=== PATIENT | male | born 1965 | race Asian ===

== ENCOUNTER → 2020-07-17 14:12 | Outpatient (CLI) | payer OTHER, SELFPAY ==
[2020-07-17] MEDS: COVID-19 VACC, Ad26(JANSSEN)/PF 0.5 ML IM (14:37)
== END ==
PROVIDERS: Visit Provider Internal Medicine
DX: Z23 Encounter for immunization (principal)
CPT/HCPCS: 0031A; 91303

== ENCOUNTER 2022-05-08 01:00 | Emergency (ER) | payer SELFPAY ==
[2022-05-08] VITALS (47 sets, daily range): BP systolic 111–206; BP diastolic 68–129; PULSE 62–95; RESP 12–32; TEMP 36.8; O2SAT 92–98
--- NOTE | 2022-05-08 01:01 | DI.CT.S_ITS ---
PROCEDURE: CT STROKE INDICATIONS: code stroke TECHNIQUE: Noncontrast 4.5 mm thick angled axial sections acquired from the foramen magnum to the vertex, with coronal reformats. For radiation dose reduction, the following was used: automated exposure control, adjustment of mA and/or kV according to patient size. COMPARISON: None. FINDINGS: Image quality: Excellent. CSF spaces: Basal cisterns are patent. No extra-axial fluid collections. Ventricles are normal in size and shape. Brain: No midline shift. No intracranial masses or hemorrhage. Monge-white matter interface is normal. Skull and face: There is a soft tissue hematoma seen overlying the occiput, as on series 2, image 12. No associated fracture can be seen. Calvarium and visualized facial bones are intact, without suspicious lesions. Sinuses: Moderate mucosal thickening can be seen within the maxillary sinuses. There is [id number]-jl-[id number] mucosal thickening within the ethmoid air cells. No abnormal fluid is seen within the mastoid air cells. IMPRESSION: No acute intracranial hemorrhage is seen. No acute intracranial process is seen. Occipital scalp hematoma noted, without an associated fracture. Note: Case discussed by telephone with Dr. Mueller at 12:20 a.m. [place] time on May 08, 2022. This study fulfills neurological imaging criteria for inclusion or exclusion of acute stroke therapies based on available published neurological imaging guidelines. Dictated by: Beck Nelson M.D. on 05/08/2022 at 0:18 Approved by: Beck Nelson M.D. on 05/08/2022 at 0:21
--- NOTE | 2022-05-08 01:01 | DI.CT.S_ITS ---
PROCEDURE: CT ANGIO HEAD AND NECK INDICATIONS: Code stroke TECHNIQUE: Noncontrast images were performed earlier in the day and not repeated. After the administration of intravenous contrast, 1 mm thick sections acquired from the aortic arch through the [place]. Post-contrast 4.5 mm thick sections then re-acquired from the foramen magnum to the vertex. 3-dimensional fcbortt-dmsbkposg-ryhuvabsyr (MIP) and/or volume rendering reformats were acquired of the central intracranial vasculature and neck separately. For radiation dose reduction, the following was used: automated exposure control, adjustment of mA and/or kV according to patient size. COMPARISON: [facility], CT, CT STROKE, 05/08/2022, 1:05. FINDINGS: Image quality: Excellent. BRAIN: CSF spaces: Ventricles are normal in size and shape. Basal cisterns are patent. No extra-axial fluid collections. Brain: No midline shift. No intracranial bleeds or masses. Monge-white matter interface appears intact. Skull and face: Posterior occipital scalp hematoma is again seen, without associated calvarial fracture. Calvarium and facial bones appear intact, without suspicious lesions. Orbits appear normal. Sinuses: Moderate mucosal thickening is seen within the maxillary sinuses and the anterior ethmoid air cells. No abnormal fluid is seen within the mastoid air cells. HEAD CT ANGIOGRAPHY: Anterior circulation: Intracranial internal carotid arteries are normal in size and flow. There is a diminutive left A1 segment, with a corresponding robust right A1 segment. This is considered to be a normal developmental variant of the [place] of [place], of typically no clinical consequence. The flow within the paired anterior cerebral arteries is otherwise normal and symmetric. The flow within the middle cerebral arteries is normal and symmetric. The anterior communicating artery is seen. No aneurysms are seen. Posterior circulation: Visualized portions of the vertebral arteries demonstrate normal caliber, and join to form a normal appearing basilar artery. There is a prominent left posterior communicating artery seen, with an accompanying diminutive left P1 segment. This is attributed to a type origin of the left posterior cerebral artery, which is considered to be a normal developmental variant of typically no clinical consequence. Flow within the posterior cerebral arteries is normal and symmetric. No aneurysms are seen. NECK CT ANGIOGRAPHY: Carotid system: The great vessels demonstrate a conventional anatomy as they arise from the aortic arch. The origins of the common carotid arteries appear patent. The common carotid arteries demonstrate normal caliber and courses. The bifurcation regions are both widely patent. The internal carotid arteries demonstrate normal calibers and courses. Posterior circulation: The origins of the vertebral arteries both appear widely patent. The more superior extracranial portions of both vertebral arteries also demonstrate normal courses and calibers. The left vertebral artery is dominant to the right. Soft tissues: Visualized neck soft tissues demonstrate no suspicious abnormalities. Bones: No suspicious bony lesions. Visualized cervical spine appears normally aligned. Cervical spine degenerative changes are seen, which are overall worst inferiorly. IMPRESSION: No significant intracranial arterial abnormality is seen. Within the arteries of the neck, no hemodynamically significant stenosis can be seen. Additional findings: [id number] developmental anomalies. Paranasal sinus disease Dominant left vertebral artery Any quantitative measurements of stenosis were performed using NASCET criteria. Dictated by: Beck Nelson M.D. on 05/08/2022 at 0:31 Approved by: Beck Nelson M.D. on 05/08/2022 at 0:35
[2022-05-08 01:19] LABS: Add Manual Diff / Slide Review NO; Basophils Absolute Auto 100 /uL (0-100); Eosinophils Absolute Auto 200 /uL (0-450); Eosinophils Percent Auto 2.1 % (2-4); Hematocrit 48.1 % (41-53); Hemoglobin 16.6 g/dL (13.5-17.5); Lymphocytes Absolute Auto 2900 /uL (1100-4500); Lymphocytes Percent Auto 36.3 % (25-40); Mean Corpuscular HGB Conc 34.5 % (30-36); Mean Corpuscular Hemoglobin 30.7 PG (26-34); Monocytes Absolute Auto 800 /uL (0-900); Monocytes Percent Auto 10.5 % (3-14); Neutrophils Absolute Auto 4000 /uL (1500-7000); Neutrophils Percent Auto 50.1 % (50-75); Platelet Count 278 X10^3/uL (150-400); Red Blood Cell Count 5.41 X10^6/uL (4.5-5.9); White Blood Cell Count 7.9 X10^3/uL (4.5-11.0)
--- NOTE | 2022-05-08 01:20 | ED_ITS ---
HPI - General Adult General Chief complaint: Neuro Symptoms/Deficit Stated complaint: Code stroke. last known 0008 Time Seen by Provider: 05/08/22 01:00 Source: patient and EMS Mode of arrival: EMS Limitations: no limitations History of Present Illness HPI narrative: Patient is a 56-year-old male. History of high blood pressure. Not on blood thinners. No prior history of stroke. 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 He was outside doing some work when he stated that he felt like he could not control his left side. He did fall. He did hit his head. There was no loss of consciousness. His last known normal was at proximally 0010 hours. This is when he contacted family members stating that he did not feel very well. At some point around this time he did have a ?fullness? in the right side of his head. EMS was called. Blood sugar prior to arrival was 127. He has left-sided deficits both his upper and lower extremities but more specifically in his left lower extremity. No facial droop. Code stroke was called. Patient was taken directly to the CT scanner. Patient denies vision changes, shortness of breath, chest pain, abdominal pain, nausea vomiting. He did soil himself and also urinated himself. He is never had a seizure in the past. He reports no pain in his extremities. Related Data Allergies Allergy/AdvReac Type Severity Reaction Status Date / Time No Known Drug Allergies Allergy Verified 05/08/22 01:22 Review of Systems Review of Systems ROS Unobtainable: All systems reviewed & are unremarkable except as noted in HPI and below Patient History Medical History Hypertension Social History Smoking Status: Current every day smoker Exam Initial Vital Signs Initial Vital Signs: Vital Signs Pulse Rate 65 05/08/22 01:11 Pulse Oximetry 98 05/08/22 01:11 Const General: cooperative, comfortable, No in distress, No combative and No ill appearing HENMT Head: contusion (Occipital region) and hematoma (Occipital region) Eyes Pupils: PERRL Chest Chest: No crepitus and No tenderness Resp Effort & Inspection: normal respiratory effort Auscultation: clear to auscultation bilaterally Cardio Rate: regular rate Rhythm: regular rhythm GI Inspection: normal to inspection and non-distended Palpation: soft and No tender Back/Spine/Pelvis Cervical Spine: No cervical spinal tenderness Skin Other: Contusion occipital region of scalp without abrasion Neuro Cognition: normal cognition Speech: speech normal Other: See NIH scale Extrem General: normal to inspection and capillary refill normal Other: No gross deformities Psych Appearance: grossly normal and well kempt Scores GCS Nhan coma scale eye opening: Spontaneous [place] coma scale verbal response: Orientated Nhan coma scale motor response: Obey commands [place] coma scale total score: 15 NIH Stroke Scale Level of Conciousness: Alert, keenly responsive Ask month/age: Answers both questions correctly. Open/close eyes, close hand: Performs both tasks correctly Best gaze horizontal: Normal Visual lenz: No visual loss Facial palsy: Normal symetrical movement Left arm drift: No drift for full 10 sec Right arm drift: No drift for full 10 sec Left leg drift: No movement Right leg drift: No drift for full 5 sec Limb ataxia: Present in two limbs Sensory on face/arms/legs: Mild to moderate sensory loss, can tell touch Best language: No aphasia, normal Dysarthria: Normal Extinction or inattention: No abnormality Total NIH Stroke scale score: 7 Course Orders Ordered: ED Orders 05/08/22 00:40 Complete Blood Count AUTO DIFF Stat Comprehensive Metabolic Panel Stat Ethanol (ETOH) Stat Lipase Stat Magnesium Stat Partial Thromboplastin Time Stat Prothrombin Time INR Stat 05/08/22 01:[address] angio head and neck Stat 05/08/22 01:02 EKG-12 Lead Stat 05/08/22 02:11 COVID19 -Nasal RAPID/Pre-Proc Stat Sodium Chloride (Normal Saline 0.9%) 1,000 mls @ 125 mls/hr IV CONT ESTHER Last Admin: 05/08/22 02:03 Dose: 125 mls/hr Documented By: NATALY Nicardipine HCl 25 mg/ Sodium (Chloride) 250 mls @ 50 mls/hr IV TITRATE ESTHER; Protocol Last Titration: 05/08/22 07:14 Dose: 1 mg/hr, 10 mls/hr Documented By: Titration: 05/08/22 02:55 Dose: 3 mg/hr, 30 mls/hr Documented By: Titration: 05/08/22 02:31 Dose: 5 mg/hr, 50 mls/hr Documented By: Titration: 05/08/22 02:18 Dose: 7.5 mg/hr, 75 mls/hr Documented By: Titration: 05/08/22 02:08 Dose: 10 mg/hr, 100 mls/hr Documented By: Admin: 05/08/22 01:43 Dose: 5 mg/hr, 50 mls/hr Documented By: NATALY Discontinued Medications Alteplase, Recombinant (Activase) 8.5 mg in 8.5 mls @ 510 mls/hr 0.09 mg/kg (8.5 mg) IV NOW ONE Stop: 05/08/22 01:23 Last Infusion: 05/08/22 02:02 Dose: 0 mls/hr Documented By: Admin: 05/08/22 02:01 Dose: 510 mls/hr Documented By: NATALY Alteplase, Recombinant (Activase) 76.8 mg in 76.8 mls @ 76.8 mls/hr 0.81 mg/kg (76.8 mg) IV NOW ONE Stop: 05/08/22 03:57 Last Admin: 05/08/22 03:18 Dose: Not Given Documented By: NATALY Labetalol HCl (Labetalol 20 Mg/4 Ml Syringe) 10 mg IV NOW ONE; Protocol Stop: 05/08/22 01:22 Last Admin: 05/08/22 01:24 Dose: 10 mg Documented By: NATALY Vital Signs Vital signs: Vital Signs - 8 hr 05/08/22 01:15 05/08/22 01:24 05/08/22 01:11 Temperature 98.3 F Pulse Rate 64 64 65 Respiratory Rate 18 Blood Pressure 199/120 H 193/118 H Pulse Oximetry 98 98 Oxygen Delivery Method Room Air 05/08/22 01:13 05/08/22 01:13 05/08/22 01:19 Temperature Pulse Rate 67 65 Respiratory Rate Blood Pressure 199/120 H Pulse Oximetry 98 98 Oxygen Delivery Method 05/08/22 01:19 05/08/22 01:20 05/08/22 01:20 Temperature Pulse Rate 63 Respiratory Rate 14 Blood Pressure 198/119 H 193/118 H Pulse Oximetry 98 Oxygen Delivery Method 05/08/22 01:30 05/08/22 01:30 05/08/22 01:34 Temperature Pulse Rate 66 Respiratory Rate 17 Blood Pressure 196/121 H 198/129 H Pulse Oximetry 97 Oxygen Delivery Method 05/08/22 01:34 05/08/22 01:35 05/08/22 01:35 Temperature Pulse Rate 68 65 Respiratory Rate 18 15 Blood Pressure 205/121 H Pulse Oximetry 97 98 Oxygen Delivery Method 05/08/22 01:40 05/08/22 01:40 05/08/22 01:45 Temperature Pulse Rate 62 68 Respiratory Rate 17 17 Blood Pressure 199/119 H Pulse Oximetry 98 98 Oxygen Delivery Method 05/08/22 01:45 05/08/22 01:50 05/08/22 01:50 Temperature Pulse Rate 67 Respiratory Rate 15 Blood Pressure 206/126 H 177/111 H Pulse Oximetry 98 Oxygen Delivery Method 05/08/22 01:55 05/08/22 01:55 05/08/22 02:00 Temperature Pulse Rate 67 Respiratory Rate 16 Blood Pressure 177/107 H 178/110 H Pulse Oximetry 97 Oxygen Delivery Method 05/08/22 02:00 05/08/22 02:05 05/08/22 02:05 Temperature Pulse Rate 71 76 Respiratory Rate 15 22 Blood Pressure 196/123 H Pulse Oximetry 97 98 Oxygen Delivery Method 05/08/22 02:10 05/08/22 02:10 05/08/22 02:15 Temperature Pulse Rate 80 Respiratory Rate 19 Blood Pressure 167/98 H 157/95 H Pulse Oximetry 97 Oxygen Delivery Method 05/08/22 02:15 05/08/22 02:20 05/08/22 02:20 Temperature Pulse Rate 76 76 Respiratory Rate 16 15 Blood Pressure 144/81 H Pulse Oximetry 97 96 Oxygen Delivery Method 05/08/22 02:25 05/08/22 02:25 05/08/22 02:30 Temperature Pulse Rate 76 Respiratory Rate 13 Blood Pressure 141/79 H 137/83 Pulse Oximetry 96 Oxygen Delivery Method 05/08/22 02:30 05/08/22 02:35 05/08/22 02:35 Temperature Pulse Rate 80 77 Respiratory Rate 19 14 Blood Pressure 144/91 H Pulse Oximetry 96 98 Oxygen Delivery Method Room Air 05/08/22 02:40 05/08/22 02:40 05/08/22 02:45 Temperature Pulse Rate 79 Respiratory Rate 19 Blood Pressure 148/91 H 147/88 H Pulse Oximetry 98 Oxygen Delivery Method 05/08/22 02:45 05/08/22 02:50 05/08/22 02:50 Temperature Pulse Rate 79 74 Respiratory Rate 20 15 Blood Pressure 141/82 H Pulse Oximetry 97 98 Oxygen Delivery Method 05/08/22 02:55 05/08/22 02:55 05/08/22 03:00 Temperature Pulse Rate 78 Respiratory Rate 17 Blood Pressure 139/84 129/81 Pulse Oximetry 97 Oxygen Delivery Method 05/08/22 03:00 05/08/22 03:05 05/08/22 03:05 Temperature Pulse Rate 77 77 Respiratory Rate 21 25 H Blood Pressure 142/84 H Pulse Oximetry 97 97 Oxygen Delivery Method 05/08/22 03:10 05/08/22 03:10 05/08/22 03:20 Temperature Pulse Rate 78 79 Respiratory Rate 16 21 Blood Pressure 147/85 H Pulse Oximetry 98 98 Oxygen Delivery Method 05/08/22 03:20 05/08/22 03:30 05/08/22 03:48 Temperature Pulse Rate 82 81 Respiratory Rate Blood Pressure 135/82 Pulse Oximetry 98 96 Oxygen Delivery Method 05/08/22 03:48 05/08/22 04:00 05/08/22 04:00 Temperature Pulse Rate 80 Respiratory Rate Blood Pressure 131/81 137/80 Pulse Oximetry 94 Oxygen Delivery Method 05/08/22 04:15 05/08/22 04:15 05/08/22 04:30 Temperature Pulse Rate 76 Respiratory Rate Blood Pressure 144/81 H 135/77 Pulse Oximetry 95 Oxygen Delivery Method 05/08/22 04:30 05/08/22 04:45 05/08/22 04:45 Temperature Pulse Rate 77 82 Respiratory Rate Blood Pressure 130/72 Pulse Oximetry 96 96 Oxygen Delivery Method 05/08/22 05:00 05/08/22 05:01 05/08/22 05:01 Temperature Pulse Rate 87 89 Respiratory Rate Blood Pressure 128/68 Pulse Oximetry 97 96 Oxygen Delivery Method 05/08/22 05:15 05/08/22 05:15 05/08/22 05:29 Temperature Pulse Rate 89 95 H Respiratory Rate Blood Pressure 148/78 H Pulse Oximetry 96 92 Oxygen Delivery Method 05/08/22 05:31 05/08/22 05:44 05/08/22 05:47 Temperature Pulse Rate 90 91 H Respiratory Rate 32 H 21 Blood Pressure 194/105 H Pulse Oximetry 97 96 Oxygen Delivery Method 05/08/22 05:47 05/08/22 06:00 05/08/22 06:01 Temperature Pulse Rate 86 87 Respiratory Rate 24 26 H Blood Pressure 160/70 H Pulse Oximetry 98 98 Oxygen Delivery Method 05/08/22 06:01 05/08/22 06:15 05/08/22 06:15 Temperature Pulse Rate 86 Respiratory Rate 17 Blood Pressure 116/78 123/86 Pulse Oximetry Oxygen Delivery Method 05/08/22 06:30 05/08/22 06:30 05/08/22 06:45 Temperature Pulse Rate 76 76 Respiratory Rate 12 12 Blood Pressure 119/78 Pulse Oximetry 96 94 Oxygen Delivery Method 05/08/22 06:45 Temperature Pulse Rate Respiratory Rate Blood Pressure 111/74 Pulse Oximetry Oxygen Delivery Method Medical Decision Making Lab Data Lab results reviewed: Yes I reviewed the patient's lab results. Result diagrams: 05/08/22 00:40 05/08/22 00:40 Labs: Lab Results 05/08/22 05/08/22 05/08/22 Range/Units 00:40 00:40 00:40 WBC 7.9 (4.5-11.0) X10^3/uL RBC 5.41 (4.5-5.9) X10^6/uL Hgb 16.6 (13.5-17.5) g/dL Hct 48.1 (41-53) % MCV 89.0 (80-100) fL MCH 30.7 (26-34) PG MCHC 34.5 (30-36) % RDW 13.0 (11.6-14.8) % Plt Count 278 (150-400) X10^3/uL Neut % (Auto) 50.1 (50-75) % Lymph % (Auto) 36.3 (25-40) % [place] % (Auto) 10.5 (3-14) % Eos % (Auto) 2.1 (2-4) % Baso % (Auto) 1.0 (0-2) % Neut # (Auto) 4000 (9701-5080) /uL Lymph # (Auto) 2900 (4047-5031) /uL [place] # (Auto) 800 (0-900) /uL Eos # (Auto) 200 (0-450) /uL Baso # (Auto) 100 (0-100) /uL PT 11.0 (10.1-12.7) SECONDS INR 1.0 (0.9-1.3) APTT 35 (26-36) SECONDS Sodium 139 (137-145) mmol/L Potassium 4.0 (3.4-5.1) mmol/L Chloride 100 (98-107) mmol/L Carbon Dioxide 27 (22-32) mmol/L BUN 17 (9-20) mg/dL Creatinine 0.99 (0.66-1.25) mg/dL Estimated GFR > 60 (>60) mL/min BUN/Creatinine Ratio 17.2 (6-22) Glucose 105 H (70-100) mg/dL Calcium 9.4 (8.4-10.2) mg/dL Magnesium 2.1 (1.6-2.3) mg/dL Total Bilirubin 0.5 (0.2-1.3) mg/dL AST 31 (17-59) IU/L ALT 44 (<50) IU/L Alkaline Phosphatase 82 (38-126) U/L Total Protein 7.7 (6.3-8.2) g/dL Albumin 4.5 (3.5-5.0) g/dL Globulin 3.2 (1.7-4.1) g/dL Albumin/Globulin Ratio 1.4 (1.0-2.8) Lipase 106 (23-300) U/L Ethyl Alcohol < 10 ( - 10) mg/dL SARS-CoV-2 (PCR) (Negative) 05/08/22 Range/Units 02:11 WBC (4.5-11.0) X10^3/uL RBC (4.5-5.9) X10^6/uL Hgb (13.5-17.5) g/dL Hct (41-53) % MCV (80-100) fL MCH (26-34) PG MCHC (30-36) % RDW (11.6-14.8) % Plt Count (150-400) X10^3/uL Neut % (Auto) (50-75) % Lymph % (Auto) (25-40) % [place] % (Auto) (3-14) % Eos % (Auto) (2-4) % Baso % (Auto) (0-2) % Neut # (Auto) (7818-4385) /uL Lymph # (Auto) (4910-8556) /uL [place] # (Auto) (0-900) /uL Eos # (Auto) (0-450) /uL Baso # (Auto) (0-100) /uL PT (10.1-12.7) SECONDS INR (0.9-1.3) APTT (26-36) SECONDS Sodium (137-145) mmol/L Potassium (3.4-5.1) mmol/L Chloride (98-107) mmol/L Carbon Dioxide (22-32) mmol/L BUN (9-20) mg/dL Creatinine (0.66-1.25) mg/dL Estimated GFR (>60) mL/min BUN/Creatinine Ratio (6-22) Glucose (70-100) mg/dL Calcium (8.4-10.2) mg/dL Magnesium (1.6-2.3) mg/dL Total Bilirubin (0.2-1.3) mg/dL AST (17-59) IU/L ALT (<50) IU/L Alkaline Phosphatase (38-126) U/L Total Protein (6.3-8.2) g/dL Albumin (3.5-5.0) g/dL Globulin (1.7-4.1) g/dL Albumin/Globulin Ratio (1.0-2.8) Lipase (23-300) U/L Ethyl Alcohol ( - 10) mg/dL SARS-CoV-2 (PCR) Negative (Negative) Imaging Data CT scan - head: Radiologist's Impression: [address] Scan ReportSigned Patient: KING DORAN#: [id number]: 1965Acct:[id number]/Sex: 56 / MDate of Service: 05/08/22Loc: EDAccession Number: [id number]? ? Procedure: CT Stroke Ordering Provider: Patrick Mueller D.O. PROCEDURE:? CT STROKE ? INDICATIONS:? code stroke ? TECHNIQUE:? Noncontrast 4.5 mm thick angled axial sections acquired from the foramen magnum to the vertex, with coronal reformats.? For radiation dose reduction, the following was used:? automated exposure control, adjustment of mA and/or kV according to patient size.? ? COMPARISON:? None. ? FINDINGS:? Image quality:? Excellent.? ? CSF spaces:? Basal cisterns are patent.? No extra-axial fluid collections.? Ventricles are normal in size and shape.? ? Brain:? No midline shift.? No intracranial masses or hemorrhage.? Monge-white matter interface is normal.? ? Skull and face:? There is a soft tissue hematoma seen overlying the occiput, as on series 2, image 12.? No associated fracture can be seen.? Calvarium and visualized facial bones are intact, without suspicious lesions.? ? Sinuses:? Moderate mucosal thickening can be seen within the maxillary sinuses.? There is hfkc-qy-kqkmpxtv mucosal thickening within the ethmoid air cells. No abnormal fluid is seen within the mastoid air cells. ? ? IMPRESSION:? No acute intracranial hemorrhage is seen.? ? No acute intracranial process is seen.? ? Occipital scalp hematoma noted, without an associated fracture. ? ? Note: Case discussed by telephone with Dr. Mueller at 12:20 a.m. [place] time on May 08, 2022.? This study fulfills neurological imaging criteria for inclusion or exclusion of acute stroke therapies based on available published neurological imaging guidelines.? ? ? Dictated by: Beck Nelson M.D. on 05/08/2022 at 0:18? ?? Approved by: Beck Nelson M.D. on 05/08/2022 at 0:21?? CTA - brain/neck: Radiologist's Impression: [place] [address] CT Scan Report Signed Patient: MUKUND DORAN MR#: [id number] : 1965 Acct:[id number] Age/Sex: 56 / M Date of Service: 05/08/22 Loc: ED Accession Number: [id number] ?? Procedure: CT angio head and neck Ordering Provider: Patrick Mueller D.O. PROCEDURE:? CT ANGIO HEAD AND NECK ? INDICATIONS:? Code stroke ? TECHNIQUE:? Noncontrast images were performed earlier in the day and not repeated.? ? After the administration of intravenous contrast, 1 mm thick sections acquired from the aortic arch through the [place].? Post-contrast 4.5 mm thick sections then re- acquired from the foramen magnum to the vertex.? 3-dimensional hmmfnbg-mqdaohyeq-deunwurnix (MIP) and/or volume rendering reformats were acquired of the central intracranial vasculature and neck separately. For radiation dose reduction, the following was used:? automated exposure control, adjustment of mA and/or kV according to patient size.? ? COMPARISON:? [facility], CT, CT STROKE, 05/08/2022, 1:05. ? FINDINGS:? Image quality:? Excellent.? ? BRAIN:? CSF spaces:? Ventricles are normal in size and shape.? Basal cisterns are patent.? No extra-axial fluid collections.? ? Brain:? No midline shift.? No intracranial bleeds or masses.? Monge-white matter interface appears intact.? ? Skull and face:? Posterior occipital scalp hematoma is again seen, without associated calvarial fracture.? Calvarium and facial bones appear intact, without araseli picious lesions.? Orbits appear normal.? ? Sinuses:? Moderate mucosal thickening is seen within the maxillary sinuses and the anterior ethmoid air cells. No abnormal fluid is seen within the mastoid air cells. ? ? HEAD CT ANGIOGRAPHY:? Anterior circulation:? Intracranial internal carotid arteries are normal in size and flow.? There is a diminutive left A1 segment, with a corresponding robust right A1 segment.? This is considered to be a normal developmental variant of the [place], of typically no clinical consequence.? The flow within the paired anterior cerebral arteries is otherwise normal and symmetric.? The flow within the middle cerebral arteries is normal and symmetric.? The anterior communicating artery is seen.? No aneurysms are seen.? ? Posterior circulation:? Visualized portions of the vertebral arteries demonstrate normal caliber, and join to form a normal appearing basilar artery. There is a prominent left posterior communicating artery seen, with an accompanying diminutive left P1 segment. This is attributed to a type origin of the left posterior cerebral artery, which is considered to be a normal developmental variant of typically no clinical consequence. ? Flow within the posterior cerebral arteries is normal and symmetric.? No aneurysms are seen.? ? NECK CT ANGIOGRAPHY:? Carotid system:? The great vessels demonstrate a conventional anatomy as they arise from the aortic arch.? The origins of the common carotid arteries appear patent.? The common carotid arteries demonstrate normal caliber and courses.? The bifurcation regions are both widely patent.? The internal carotid arteries demonstrate normal calibers and courses.? ? Posterior circulation:? The origins of the vertebral arteries both appear widely patent.? The more superior extracranial portions of both vertebral arteries also demonstrate normal courses and calibers.? The left vertebral artery is dominant to the right.? ? Soft tissues:? Visualized neck soft tissues demonstrate no suspicious abnormalities.? ? Bones:? No suspicious bony lesions.? Visualized cervical spine appears normally aligned.? Cervical spine degenerative changes are seen, which are overall worst inferiorly. ? ? IMPRESSION:? No significant intracranial arterial abnormality is seen.? ? Within the arteries of the neck, no hemodynamically significant stenosis can be seen. ? ? ? Additional findings: Fzvgdn-za-Hqhnui developmental anomalies. ? ? Paranasal sinus disease Dominant left vertebral artery ? ? Any quantitative measurements of stenosis were performed using NASCET criteria.? ? ? Dictated by: Beck Nelson M.D. on 05/08/2022 at 0:31 ? ? Approved by: Beck Nelson M.D. on 05/08/2022 at 0:35?? ECG Data Attestation: I personally reviewed and interpreted this ECG as follows: Interpretation: Sinus rhythm Ventricular rate is 64 Normal axis Normal QTC No ST T wave changes MDM Narrative Medical decision making narrative: Patient arrived within an hour of the onset of his symptoms. Blood sugar was greater than 120 per EMS prior to arrival. He went directly to the CT scanner. CT scan of his head and also CTA of the head and neck were unremarkable. NIH score of 7. Initial blood pressure was upper 190s over 100s to 200s over 100s. Initially 10 mg of labetalol was given with only minimal improvement of his bl ood pressure. Nicardipine drip was started. I did discuss with him my concern about a acute ischemic stroke. We did discuss the risks and benefits of tPA. Patient expressed the understanding of this. His family was at bedside and they also expressed understanding of the bleeding risk. I did inform him that we needed to improve his blood pressure to a systolic less than 185 before we can give this medication. I also discussed the case with Dr. Rice with Neurology at the [facility] who agreed with tPA if we could get his blood pressure under control. With nicardipine drip we were able to get a systolic blood pressure less than 185 and a diastolic blood pressure less than 110. Patient has no improvement of symptoms just prior to administration. Bolus started at 0158. Will transfer for post tPA/CVA care Dr. Rice at [facility] states that they can take the patient however their hospital is extremely full in boarding multiple shyam ents in the emergency department. They asked that we attempt to find another location with neuro ICU. I did discuss the case with Dr. Branch at [facility] in the neuro ICU who does accept the patient for transfer. At 0600 hours patient is still on nicardipine drip and blood pressure is contro lled with systolic less than 170. TPA has been administered. Patient's NIH score now is 4 points down from 7. Improvement in ileoxh-tb-bcpj with his left hand and he now has some effort against gravity with his left leg. He receives 2 points for some effort against gravity with his left leg 1 point with ataxia in 1 limb 1 point with foil-mu-wtzwfjlv sensation loss. Patient states he still is having ?fullness? in the right side of his head but it is not worse. He would like to sit up in bed. Upon sitting up he did have quite a bit of difficulty with truncal ataxia. He kept trying to fall to his left side. He was able to overcome this somewhat. We will continue with the plan of trans port. Critical Care Time Critical Care Time Critical Care Time: Yes Total Critical Care Time: 60 Attestation: The high probability of a clinically significant, sudden or life threatening deterioration of the []neurologic system(s) required my full and direct attention, intervention and personal management. The aggregate critical care time was [60] minutes. This time is in addition to time spent performing reported procedures but includes the following: [x] Data Review and interpretation [x] Patient assessment and monitoring of vital signs [x] Documentation [x] Medication orders and management Discharge Plan [facility]: CVA (cerebral vascular accident), Hypertension
[2022-05-08 01:22] LABS: PTT Partial Thromboplastin Tim 35 SECONDS (26-36)
[2022-05-08 01:23] LABS: Alanine Aminotransferase 44 IU/L (<50); Albumin 4.5 g/dL (3.5-5.0); Albumin Globulin Ratio 1.4 (1.0-2.8); Alkaline Phosphatase 82 U/L (38-126); Aspartate Aminotransferase 31 IU/L (17-59); BUN Creatinine Ratio 17.2 (6-22); Bilirubin Total 0.5 mg/dL (0.2-1.3); Blood Urea Nitrogen 17 mg/dL (9-20); Calcium 9.4 mg/dL (8.4-10.2); Carbon Dioxide 27 mmol/L (22-32); Chloride 100 mmol/L (98-107); Estimated Glomerular Filt Rate > 60 mL/min (>60); Ethanol (ETOH) < 10 mg/dL; Globulin 3.2 g/dL (1.7-4.1); Glucose 105 mg/dL (70-100); HEMOLYSIS 17 (0-50); Lipase 106 U/L (23-300); Magnesium 2.1 mg/dL (1.6-2.3); Sodium 139 mmol/L (137-145); Total Protein 7.7 g/dL (6.3-8.2)
[2022-05-08] MEDS: LABETALOL 20 MG/4 ML SYRINGE 10 MG IV (01:24)
[2022-05-08] MEDS: NICARDIPINE 25 MG in SODIUM CHLORIDE 0.9% 240 ML 50 MG IV (01:43)
[2022-05-08] MEDS: ALTEPLASE 510 MG IV (02:01)
[2022-05-08] MEDS: ALTEPLASE 100 MG/100 ML VIAL 76.6 MG IV (02:02)
[2022-05-08] MEDS: SODIUM CHLORIDE 0.9% 1,000 ML 125 ML IV (02:03)
--- NOTE | 2022-05-08 02:33 | PC.NURSE ---
Alteplase started at 0201, dose confirmed with 2nd RN. Nicardipine gtt running per protocol for goal SBP <185. VS q5, Neuro checks q15. Pt is voiding. Currently A&Ox4. Pt still having left side deficits at this time. Continuing to monitor pt.
[2022-05-08 02:55] LABS: COVID19 -Nasal RAPID Negative (Negative)
--- NOTE | 2022-05-08 06:08 | PC.NURSE ---
Upon hourly rounds. RN found pt attempting to get out bed with assistance of . RN asked pt where he was going, and pt reports he needed to use the restroom. RN assisted pt with bedpan. RN encouraged pt to not get out of bed and to use call light. Pt is started to gain some movement in his lower left leg. Pt was able to slightly lift leg above the bed.
--- NOTE | 2022-05-08 15:20 | PC.NURSE ---
pt was transferred to [facility] on a nicardipine gtt and ivf.
== END 2022-05-08 08:40 | disposition short-term general hospital (02) ==
PROVIDERS: Emergency Provider Emergency Medicine
DX: I63.9 Cerebral infarction, unspecified (principal); I10 Essential (primary) hypertension; R29.707 NIHSS score 7; W18.30XA Fall on same level, unspecified, initial encounter; Z20.822 Contact with and (suspected) exposure to COVID-19
CPT/HCPCS: 70450; 70496; 70498; 80053; 80320; 83690; 83735; 85025; 85610; 85730; 87635; 93005; 96365; 96366; 96375; 99285; 99291; C9803; J2997